=== PATIENT | female | born 1960 | race Caucasian/White ===

== ENCOUNTER → 2017-06-04 | Outpatient (CLI) | payer BC | LOC: FIMAGING 11:28 | DX: N64.4 Mastodynia (principal); Z90.13 Acquired absence of bilateral breasts and nipples; Z85.3 Personal history of malignant neoplasm of breast | CPT/HCPCS: 0159T; 77059; C8907 ==

== ENCOUNTER → 2018-05-04 | Outpatient (CLI) | payer BC | LOC: FIMAGING 07:03 | PROVIDERS: ATTEND Neurological Surgery | DX: M50.30 Other cervical disc degeneration, unspecified cervical region (principal); M89.9 Disorder of bone, unspecified; M43.16 Spondylolisthesis, lumbar region; M51.37 Other intervertebral disc degeneration, lumbosacral region ==

== ENCOUNTER → 2018-05-06 | Outpatient (CLI) | payer BC | LOC: FIMAGING 09:42 | PROVIDERS: ATTEND Internal Medicine Hematology & Oncology | DX: M89.9 Disorder of bone, unspecified (principal) | CPT/HCPCS: 78306; A9503 ==

== ENCOUNTER → 2018-05-13 | Outpatient (CLI) | payer BC ==
[~2018-05-13] MED LIST: GADOBUTROL 10 ML VIAL IVP ONE
== END ==
LOC: FIMAGING 09:45
PROVIDERS: ATTEND Internal Medicine Hematology & Oncology
DX: C50.112 Malignant neoplasm of central portion of left female breast (principal); Z87.39 Personal history of other diseases of the musculoskeletal system and connective tissue; M85.68 Other cyst of bone, other site
CPT/HCPCS: A9585